=== PATIENT | male | born 1970 | race Caucasian/White ===

== ENCOUNTER 2021-01-25 08:42 | Emergency (ER) | payer MEDICAID, OTHER, SELFPAY ==
[2021-01-25 09:02] VITALS: BP 133/78; PULSE 83; RESP 18; TEMP 36.6; O2SAT 98; BMI 35.4
--- NOTE | 2021-01-25 09:29 | ED_ITS ---
HPI - Extremity Problem General Chief complaint: Extremity Injury, Upper Stated complaint: pain on arm, no sensation Time Seen by Provider: 01/25/21 09:26 Source: patient Mode of arrival: ambulatory History of Present Illness HPI Narrative: 50-year-old male with no significant past medical history presenting to the ED complaining ofAcute on chronic left shoulder pain radiating down left arm since 2000. Reports used to work with a lot of heavy lifting / repetitive motions and has history of pinched nerve in neck causing symptoms, denies recent / new history of trauma, falls, or injury. Has not been taking medications at home for the pain. Admits to associated tingling. Denies numbness, weakness, urinary incontinence /retention, CP/SOB Related Data Previous Rx's Medication Instructions Recorded acetaminophen [Tylenol Extra 500 mg PO Q6H PRN #20 tab 01/25/21 Strength] cyclobenzaprine 5 mg PO Q8H PRN 5 Days #14 tab 01/25/21 lidocaine [Lidoderm] 1 patch TOPICAL DAILY PRN #30 ea 01/25/21 MDD remove after 12 hours naproxen 500 mg PO BID PRN 10 Days #20 tab 01/25/21 Allergies Allergy/AdvReac Type Severity Reaction Status Date / Time No Known Allergies Allergy Verified 01/25/21 09:08 Review of Systems Review of Systems: Constitutional: No Fever, No Chills Cardiovascular: No Chest Pain, No SOB Respiratory: No Cough, No Sputum, No Wheezing Gastrointestinal: No Nausea, No Vomiting, No Diarrhea, No Abdominal pain Genitourinary: No Urinary Incontinence/ no retention Musculoskeletal: +L neck/sholder pain, No Myalgias, No Joint Swelling Skin: No Skin Lesions, No rash Neuro: No Weakness, No Numbness, + Paresthesias Yes all other systems are reviewed and are negative [facility] Past Medical History Attestation statement: The following information was validated with the patient. Medical History (Updated 01/25/21 @ 09:37 by WAN Carlos) No known health problems Social History Social History Advance Directives: No Advance Directives Information Provided: No Physical Exam Vital Signs: Vital Signs: Last Vital Signs Temp 97.8 F 01/25/21 09:02 Pulse 83 01/25/21 09:02 Resp 18 01/25/21 09:02 BP 133/78 01/25/21 09:02 Pulse Ox 98 01/25/21 09:02 Body Mass Index 35.4 Const: General: cooperative, healthy appearing, comfortable and no acute d istress Orientation/consciousness: patient oriented x3 Limitations: no limitations HENMT: Head: Yes normal to inspection Ears: hearing grossly normal bilaterally General nose exam: Normal external nose present Face and sinus: Yes normal facial exam Eyes: General: appearance normal, both eyes and all related structures EOM: EOMs intact bilaterally Neck: Other: no midline cervical spinous tenderness or step-offs. + left- sided trapezius muscle tenderness to palpation and spasming noted Neck: Yes normal visual inspection Resp: Effort & Inspection: normal respiratory effort and no respiratory distress Cardio: Rate: regular rate GI: Inspection: Yes normal to inspection Palpation (GI): Soft to palpation, nontender, no guarding and not rigid Back/Spine/Pelvis: Other: No midline thoracic/lumbar spinous tenderness Skin: Rashes: no rashes Wounds: no wounds Neuro: Other: Strength intact throughout General: patient oriented x3, gait normal, tone normal and moves all extremities Gait exam (Neuro): Normal gait present Motor exam (neuro): 5/5 motor strength present throughout Extrem: General: Yes normal to inspection MDM - Extremity (Nontraumatic) MDM Narrative Medical decision making narrative: 50-year-old male with no significant past medical history presenting to the ED complaining ofAcute on chronic left shoulder pain radiating down left arm since 2000. On exam vital signs stable, NAD, nontoxic appearing, no midline spinous tenderness, no red flag symptoms. Left trapezius muscle tenderness/spasming reproducible on exam. Concern for MSK pain/strain. Low concern for cord compression, cauda equina, ACS Discharge Plan Discharge Clinical Impression: Strain of trapezius muscle Qualifiers: Encounter type: initial encounter Laterality: left Qualified Code(s): S46.812A - Strain of other muscles, fascia and tendons at shoulder and upper arm level, left arm, initial encounter Patient Disposition: Home, Self-Care Instructions: Musculoskeletal Pain (ED) Additional Instructions: Your pain is likely musculoskeletal Flexeril is a muscle relaxer, take at night as it makes you drowsy, do not drive, drink alcohol, or operate machinery while taking it Naproxen as an anti-inflammatory / pain medication, take with food Lidoderm patches are numbing patches, apply to painful area In addition take Tylenol at home If symptoms persist or worsen, pain becomes unbearable, you developed urinary retention or incontinence, or weakness return to the ED Es probable que ponce dolor sea musculoesquel?bertha Flexeril es un relajante muscular, t?jasso por la noche ya que le produce somnolencia, no conduzca, no vitaliy alcohol ni utilice maquinaria mientras lo chang. Naproxeno daryn medicamento antiinflamatorio / analg?sico, [place] con alimentos. Los parches de Lidoderm son parches que adormecen, se aplican al ?nancy dolorida Adem?s, tome Tylenol en casa. Si los s?ntomas persisten o empeoran, el dolor se vuelve insoportable, desarroll? retenci?n urinaria o incontinencia, o debilidad regrese al servicio de urgencias Prescriptions: New acetaminophen [Tylenol Extra Strength] 500 mg tablet 500 mg PO Q6H PRN (Reason: pain or fever) Qty: 20 RF: 0 lidocaine [Lidoderm] 5 % adhesive patch,medicated 1 patch topical DAILY MDD remove after 12 hours PRN (Reason: pain) Qty: 30 RF: 0 naproxen 500 mg tablet 500 mg PO BID PRN (Reason: pain) 10 Days Qty: 20 RF: 0 cyclobenzaprine 5 mg tablet 5 mg PO Q8H PRN (Reason: pain (scale score 7-10)) 5 Days Qty: 14 RF: 0 Referrals: Soheila Jauregui FNP [Nurse Practitioner] - 2 days [facility] BARLOW [Nurse Practitioner] - 2 days [facility] [Physician] - 2 days Print Language: Tajik
[2021-01-25] MEDS: Ketorolac Tromethamine 30 MG/ML VIAL IM (09:33)
[2021-01-25 09:51] VITALS: RESP 17
== END 2021-01-25 09:51 | disposition home or self-care (01) ==
PROVIDERS: Emergency Provider Emergency Medicine
DX: S46.812A Strain of other muscles, fascia and tendons at shoulder and upper arm level, left arm, initial encounter (principal); X50.9XXA Other and unspecified overexertion or strenuous movements or postures, initial encounter; X50.0XXA Overexertion from strenuous movement or load, initial encounter; Y93.89 Activity, other specified; Y92.9 Unspecified place or not applicable; Y99.0 Civilian activity done for income or pay
CPT/HCPCS: 96372; 99283; 99284; J1885

== ENCOUNTER 2023-03-15 08:31 | Outpatient (REF) | payer MEDICAID, OTHER, SELFPAY ==
--- NOTE | 2023-03-15 08:35 | EMG_ITS ---
Left median and ulnar motor and sensory studies were performed. Left radial sensory study was performed. Left median and lateral antecubital sensory studies were performed. Paraspinal and some limb muscles were tested with needle. IMPRESSION: Mild left ulnar neuropathy across cubital tunnel. There was no evidence of median neuropathy. MD BETZY Jenkins/DOUG / [phone]
== END 2023-03-15 08:32 | disposition home or self-care (01) ==
LOC: HO.NEURO 08:31
PROVIDERS: PCP Registered Nurse; Visit Provider Registered Nurse
DX: R20.2 Paresthesia of skin (principal)
CPT/HCPCS: 95886; 95910

== ENCOUNTER 2023-06-23 05:31 | Emergency (ER) | payer MEDICAID, OTHER, SELFPAY ==
--- NOTE | ~2023-06-23 | XR_ITS ---
EXAMINATION: XR CHEST CLINICAL INFORMATION: Dyspnea COMPARISON: None available. TECHNIQUE: 2 views of the chest were obtained. FINDINGS: No significant abnormality is noted involving the heart, lungs, mediastinum, bony thorax or soft tissues. XR/XR chest 2V IMPRESSION: Unremarkable examination.
[2023-06-23 05:47] VITALS: BP 133/79; PULSE 104; RESP 18; TEMP 37.6; O2SAT 97; BMI 34.9
[2023-06-23 06:06] LABS: COVID-19 Test Positive (Negative); IDNOW Serial# BCCEAD1C
[2023-06-23 06:13] LABS: IDNOW Serial# 6674DD1D; Strep A Nucleic Acid Negative (Negative)
--- NOTE | 2023-06-23 06:48 | ED.URI ---
HPI - URI/Sore Throat General Chief Complaint: General Medical Stated Complaint: Fever, Nausea, Cough Time Seen by Provider: 06/23/23 06:34 Source: patient Mode of arrival: ambulatory Limitations: language barrier ( Indonesian-speaking incident response manager utilized) History of Present Illness HPI Narrative: Patient is a 53-year-old male who presents to the emergency department after tested positive for COVID-19 at home. he reports frequent experiencing symptoms for the past 3 days fever responding to Tylenol, nausea without vomiting, headache without dizziness/ lightheadedness /present changes /neck pain, sore throat without difficulty swallowing, nonproductive. his is ill with similar symptoms as well. he has been vaccinated for COVID- 19 x 3 with Moderna. he has never had a COVID-19 infection before, so he states she came to the hospital to figure out what to do Related Data Previous Rx's Medication Instructions Recorded acetaminophen 500 mg tablet 500 mg PO Q6H PRN pain or fever 01/25/21 (Tylenol Extra Strength) #20 tabs cyclobenzaprine 5 mg tablet 5 mg PO Q8H PRN pain (scale score 01/25/21 7-10) 5 days #14 tabs lidocaine 5 % topical patch 1 patch topical DAILY PRN pain #30 01/25/21 (Lidoderm) ea naproxen 500 mg tablet 500 mg PO BID PRN pain 10 days #20 01/25/21 tabs Allergies Allergy/AdvReac Type Severity Reaction Status Date / Time No Known Allergies Allergy Verified 06/23/23 05:46 Review of Systems Review of Systems: Yes all other systems are reviewed and are negative PMFSH Past Medical History Attestation statement: The following information was validated with the patient. Source: old records reviewed Medical History No known health problems Social History Social History Alcohol intake: current Alcohol intake frequency: holidays/special occasions only Smoked in Last 30 Days: No Use of substances other than those prescribed or required for medical reasons: No Advance Directives: No Advance Directives Information Provided: Yes Physical Exam Vital Signs: Vital Signs: Last Vital Signs Temp 99.7 F 06/23/23 05:47 Pulse 104 H 06/23/23 05:47 Resp 18 06/23/23 05:47 BP 133/79 06/23/23 05:47 Pulse Ox 97 06/23/23 05:47 O2 Del Method Room Air 06/23/23 05:47 BMI result Body Mass Index 34.9 Appearance: Alert.?Oriented to person, place and time. No acute distress.?Normal affect. Eyes: Pupils equal, round and reactive to light.? ENT: TM normal bilaterally. Pharynx normal.?? Neck: Normal inspection.? Neck supple.??No cervical adenopathy CVS: Heart sounds normal. Normal heart rate and rhythm.? Pulses normal.?? Respiratory: No respiratory distress.? Lung sounds clear to auscultation bilaterally?? Abdomen: Soft and non-tender. Normoactive bowel sounds. Skin: Skin warm and dry.? Normal skin color.? ? Extremities: No lower extremity edema.? Neuro: Moves all extremities spontaneously. Sensation intact bilaterally. No motor deficits. Ambulates with normal steady gait. Medical Decision Making Medical Decision Making [facility] Narrative: Patient is a 53-year-old male with no reported past medical history presenting for evaluation of upper respiratory symptoms. COVID-19 testing positive. At this time history and physical exam not consistent with peritonsillar/retropharyngeal abscess/pneumonia. Well-appearing, nontoxic, afebrile, or tachypnea/hypoxia. Speaking clear full sentences, ambulatory with steady gait. offered treatment with Paxlovid, discussed indications for use, side effects, complications, medication interactions, patient ultimately declined treatment. Discussed conservative treatment including rest, hydration, Tylenol/ibuprofen as needed for fever and body aches, saline nasal spray, humidifier, [id number] cold medication. Advised to follow-up with primary care provider as needed, discussed reasons to return back to the emergency department. All questions were answered. Patient discharged home in stable condition. Differential Diagnosis Differential Diagnoses: The differential diagnosis associated with the presentation includes ( as noted above) Lab Data [facility] Lab Attestation statement: I reviewed the patient's lab results. Labs: Lab Results 06/23/23 06/23/23 Range/Units 05:54 06:01 COVID-19 (ASHLEY) Positive A (Negative) COVID-19 Clin Com See Note S. pyogenes GrpA ROBERT Negative (Negative) Independent Interpretation I performed an independent interpretation of an: Plain X-Ray ( I personally interpreted chest x-ray and agree with radiologist impression, no evidence of consolidation or infiltrate) Radiology Impression Discussion of test interpretation with radiology: I have reviewed the radiologist's reading. Radiologist Impression: XR/XR chest 2V IMPRESSION: Unremarkable examination. Independent Historian Clinical information obtained from an independent historian. History obtained from or confirmed by: Spouse ( present at bedside who confirms history) External Record Review External record reviewed: Outpatient record Prescription Management I considered prescription management with: Antiviral ( see narrative above for further detail) Discharge Plan Discharge Clinical Impression: COVID-19 Patient Disposition: Home, Self-Care Instructions: COVID-19 (Coronavirus Disease 2019) (ED) Additional Instructions: You have tested positive for COVID- 19. You were offered treatment with Paxlovid, however you have declined. Please wear mask in socially distance at all times possible. You should remain home as much as you can. Per the CDC guidelines are a return back to work or and social distancing once it has been 5 days since the onset of your symptoms, you are feeling better, and or without a fever without the use of Tylenol or ibuprofen. Your soonest return to work date/ and isolation date is Sunday06/25/2023 Be sure to rest, stay well hydrated drinking plenty of fluids, eat small frequent meals. You can take ibuprofen 200 mg, 3 tablets (600mg) every 6-8 hours as needed for pain, in addition to Tylenol 500 mg, 2 tablets (1,000mg) every 4-6 hours as needed for pain, but not to exceed 3 doses daily (3,000mg).? [id number]-csz-avnpzdz cold medications may be helpful as well for symptoms. Saline nasal spray, humidifier may be helpful for nasal congestion. You may return to the emergency department with any new or worsening symptoms or concerns. Follow-up with your primary care provider as needed. S Prescriptions: No Action acetaminophen [Tylenol Extra Strength] 500 mg tablet 500 mg PO Q6H PRN (Reason: pain or fever) Qty: 20 0RF lidocaine [Lidoderm] 5 % adhesive patch,medicated 1 patch topical DAILY MDD remove after 12 hours PRN (Reason: pain) Qty: 30 0RF Rx Instructions: leave on most painful area for up to 12 hrs naproxen 500 mg tablet 500 mg PO BID PRN (Reason: pain) 10 Days Qty: 20 0RF cyclobenzaprine 5 mg tablet 5 mg PO Q8H PRN (Reason: pain (scale score 7-10)) 5 Days Qty: 14 0RF Referrals: Beto Gimenez [employer] [Primary Care Provider] - Interventions: ED Discharge Assessment Last Done: 06/23/23 06:56 Discharge Date/Time: 06/23/23 06:58
== END 2023-06-23 06:58 | disposition home or self-care (01) ==
PROVIDERS: Emergency Provider Emergency Medicine; PCP Registered Nurse
DX: U07.1 COVID-19 (principal); R50.9 Fever, unspecified
CPT/HCPCS: 71046; 87635; 87651; 99283; 99284

== ENCOUNTER 2024-08-22 04:04 | Emergency (ER) | payer MEDICAID, OTHER, SELFPAY ==
--- NOTE | ~2024-08-22 | CT_ITS ---
EXAMINATION: CT ABDOMEN AND PELVIS WITH CONTRAST CLINICAL INFORMATION: Left lower quadrant pain COMPARISON: None available. TECHNIQUE: Multidetector volumetric images were obtained from the superior aspect of the liver through the pubic symphysis following administration 85 mL of Omnipaque 350 intravenous contrast. Sagittal and coronal reformatted images were obtained on the technologist's workstation. Oral contrast: No This CT examination was performed using dose optimization techniques as appropriate, variously including the following: *Automated exposure control *Adjustment of mA and/or kV according to patient size (this includes techniques or standardized protocols for targeted exams where dose is matched to indication/reason for exam; i.e. extremities or head) *Use of iterative reconstruction technique DLP 720 FINDINGS: LUNG BASES: There is dependent atelectasis right lung base. The heart size is normal. There is no pleural or pericardial effusion. LIVER, GALLBLADDER, AND BILIARY TREE: There is mild atrophy of the anterior segment right hepatic lobe. The liver is otherwise normal in size, shape, and attenuation. No focal hepatic lesion or biliary ductal dilatation is present. The gallbladder is unremarkable with no evidence of radiopaque gallstones, gallbladder wall thickening, or obvious pericholecystic inflammatory changes. PANCREAS: Unremarkable. SPLEEN: Unremarkable. ADRENAL GLANDS: Unremarkable. KIDNEYS AND URETERS: The kidneys are normal in size, shape, and attenuation. No hydronephrosis, hydroureter, or calculi seen. There are bilateral extrarenal kidney pelvises but no ureteral dilatation seen. No perinephric stranding. BLADDER: Unremarkable. GASTROINTESTINAL TRACT: There is scattered stool, diverticuli and gas seen in the colon without significant distention. The small bowel loops are normal caliber. Appendix is not visualized. The stomach is mildly prominent with recently ingested food. ABDOMINAL WALL: Small umbilical hernia containing fat. LYMPH NODES: Normal. VASCULAR: Unremarkable. PELVIC VISCERA: Prostate gland and seminal vesicles are mildly enlarged left seminal slightly larger than the right. OSSEOUS STRUCTURES: Mild spondylosis. No aggressive lytic or sclerotic process seen CT/CT abdomen pelvis w IV con IMPRESSION: No acute intra-abdominal process seen. Especially there is no left-sided abnormality seen. Bilateral extrarenal pelvises but no radiopaque urolith. Nonspecific mild enlargement of prostate and seminal vesicles. Fleischner guidelines were followed. Electronically signed by: Soruav Morales MD 08/22/2024 09:01 AM EST [facility]
[2024-08-22 04:09] VITALS: BP 127/75; PULSE 83; RESP 18; TEMP 36.5; O2SAT 98; BMI 33.3
[2024-08-22 04:48] LABS: MANUAL DIFF FLAG NO
[2024-08-22 04:50] LABS: Basophils Percent Auto 0.2 % (0-2); Eosinophils Absolute Auto 0.1 X10*3/uL (0.0-0.4); Eosinophils Percent Auto 1.8 % (0-4); Hematocrit 39.5 % (42.0-52.0); Hemoglobin 14.2 g/dl (14.0-18.0); Imm Gran Abs Auto 0.03 X10*3/uL (0.00-0.03); Imm Gran Pct Auto 0.5 % (0.0-0.4); Lymphocytes Absolute Auto 2.7 X10*3/uL (1.2-4.9); Lymphocytes Percent Auto 43.7 % (20-40); Mean Corpuscular HGB Conc 35.9 g/dl (31.0-36.0); Mean Corpuscular Hemoglobin 34.5 pg (27.0-33.0); Mean Corpuscular Volume 96.1 fL (80.0-98.0); Mean Platelet Volume 10.4 fL (9.4-12.4); Monocytes Absolute Auto 0.5 X10*3/uL (0.1-1.2); Monocytes Percent Auto 7.9 % (2-11); Neutrophils Absolute Auto 2.9 x10*3/uL (2.0-8.3); Neutrophils Percent Auto 45.9 % (45-73); Platelet Count 124 X10*3/uL (160-400); Red Blood Count 4.11 X10*6/uL (4.60-5.80); Red Cell Distribution Width 12.5 % (11.0-16.0); White Blood Count 6.2 X10*3/uL (4.8-10.8)
[2024-08-22 05:03] LABS: Alanine Aminotransferase 65 U/L (0-40); Albumin Level 4.1 g/dL (3.5-5.0); Alkaline Phosphatase 61 U/L (39-117); Anion Gap 15 (12-20); Aspartate Amino Transferase 58 U/L (5-37); Bilirubin Total 0.9 mg/dL (0.0-1.0); Blood Urea Nitrogen 12 mg/dL (9-16); Calcium 8.7 mg/dL (8.4-10.2); Carbon Dioxide 19 mmol/L (22-29); Chloride 106 mmol/L (96-108); Creatinine Clr Calc Pharmacy 110.4; Estimated Glomerular Filt Rate > 60; Glucose Random 163 mg/dL (60-115); Potassium 3.2 mmol/L (3.3-5.1); Sodium 137 mmol/L (135-145); Total Protein 8.1 g/dL (6.5-8.0)
[2024-08-22 05:25] LABS: Influenza A PCR NEGATIVE (Negative); Influenza B PCR NEGATIVE (Negative); Resp Syncy Virus RNA Qual PCR NEGATIVE (Negative); SARS COV2 PCR INHOUSE NEGATIVE (Negative)
[2024-08-22 06:24] VITALS: BP 107/72; PULSE 78; RESP 18; TEMP 37; O2SAT 97
--- NOTE | 2024-08-22 06:57 | ED_ITS ---
HPI - Nausea/Vomiting/Diarrhea General Chief complaint: Nausea/Vomiting/Diarrhea Stated complaint: n/v, dizziness Time Seen by Provider: 08/22/24 06:55 Source: patient, family and old records reviewed Mode of arrival: ambulatory Limitations: no limitations History of Present Illness ED Provider: FRANKI SHELTON Narrative: 54 yo male with no PMH here with c/o waking up with nausea and LLQ pain no vomiting, no fevers, feels weak dizzy and chills. Has no urinary symptoms and no diarrhea. No fevers known. Blames this on 3 bagles he ate before bed. No sick contacts or travel. MD elicited complaint: nausea and abdominal pain Onset (ago): day(s) (1am today) Associated nausea: Yes Associated abdominal pain: Yes Location of pain: LLQ Radiation: LLQ Pain consistency: constant Severity: mild Quality: dull Exacerbating factors: movement Relieving factors: none Associated symptoms: loss of appetite, malaise, nausea/vomiting and weakness Related Data Previous Rx's ?Medication ?Instructions ?Recorded acetaminophen 500 mg tablet 500 mg PO Q6H PRN pain or fever 01/25/21 (Tylenol Extra Strength) #20 tabs cyclobenzaprine 5 mg tablet 5 mg PO Q8H PRN pain (scale score 01/25/21 7-10) 5 days #14 tabs lidocaine 5 % topical patch 1 patch topical DAILY PRN pain #30 01/25/21 (Lidoderm) ea naproxen 500 mg tablet 500 mg PO BID PRN pain 10 days #20 01/25/21 tabs ondansetron 4 mg disintegrating 4 mg PO Q8H PRN nausea and 08/22/24 tablet vomiting #20 tabs Allergies Allergy/AdvReac Type Severity Reaction Status Date / Time No Known Allergies Allergy Verified 08/22/24 04:14 Review of Systems 2 Review of Systems: Constitutional : No Weight loss, No Fever, No Chills ENT/Mouth : No sore throat, No Rhinorrhea Eyes: No Swelling, No Redness Cardiovascular : No Chest Pain, No SOB, NoEdema Respiratory : No Cough, No Sputum, No Wheezing Gastrointestinal : Positive Nausea, no Vomiting, no Diarrhea, positive abdominal Pain, No Hematochezia, No Melena Genitourinary : No Dysuria, No Urinary Frequency, No Hematuria, No Urgency Musculoskeletal : No joint pain, No Myalgias, No Joint Swelling Skin : No Skin Lesions, No rash Neuro : No Weakness, No Numbness, No Dizziness, No Headache All other systems reviewed and are negative. Gastrointestinal: Gastrointestinal: Reports nausea PMFSH Past Medical History Attestation statement: The following information was validated with the patient. Source: old records reviewed Medical History No known health problems Social History Social History Alcohol intake: current Alcohol intake frequency: does not drink Smoked in Last 30 Days: No Use of substances other than those prescribed or required for medical reasons: No Advance Directives: No Advance Directives Information Provided: Yes Do you have a plan to hurt others: No Plan Physical Exam 2 Vital Signs: Vital Signs: Last Vital Signs Temp 97.5 F 08/22/24 07:12 Pulse 88 08/22/24 07:12 Resp 16 08/22/24 07:12 BP 126/76 08/22/24 07:12 Pulse Ox 96 08/22/24 07:12 O2 Del Method Room Air 08/22/24 07:12 BMI result Body Mass Index 33.3 Appearance: Alert. Oriented X3. No acute distress. Eyes: Pupils equal, round and reactive to light. ENT: Pharynx normal. Neck: Normal inspection. Neck supple. CVS: Normal heart rate and rhythm. Pulses normal. Respiratory: No respiratory distress. Breath sounds normal. Abdomen: Soft and mild LLQ pain no rebound Skin: Skin warm and dry. Normal skin color. Normal skin turgor. Extremities: No lower extremity edema. No calf ttp Neuro: Oriented X 3. No motor deficit. No sensory deficit. Medications Administered Discontinued Medications Generic Name Dose Route Start Last Admin Trade Name Freq PRN Reason Stop Dose Admin Lactated Ringer's 1,000 mls @ 999 mls/hr 08/22/24 06:58 08/22/24 08:31 Lr IV 08/22/24 07:58 Infused .Q1H1M ONE Infusion Ondansetron HCl 4 mg 08/22/24 06:58 08/22/24 07:09 Ondansetron Hcl 4 Mg/2 Ml Vial IVPUSH 08/22/24 06:59 4 mg ONCE ONE Administration Potassium Chloride 20 meq 08/22/24 06:58 08/22/24 07:07 Potassium Chloride Er 20 Meq Tab.Er.Prt PO 08/22/24 06:59 20 meq ONCE ONE Administration Medical Decision Making Medical Decision Making [facility] Narrative: 54 yo male with no PMH here with c/o nausea and LLQ pain overall benign abdominal exam and not toxic no fevers, urinary symptoms, no v/d at this time labs, CT scan for diverticulitis - suspect viral syndrome vs renal colic vs diverticulitis. Dizziness with movement no focal deficits doubt stroke or ICH Differential Diagnosis Differential Diagnoses: The differential diagnosis associated with the presentation includes viral syndrome vs renal colic vs diverticulitis. Admission/Observation Consideration of admission/observation: Escalation of care including admission/observation considered feels better tolerating PO stable for DC Lab Data [facility] Lab Attestation statement: I reviewed the patient's lab results. 08/22/24 04:43 08/22/24 04:43 Labs: Lab Results 08/22/24 Range/Units 04:43 WBC 6.2 (4.8-10.8) X10*3/uL RBC 4.11 L (4.60-5.80) X10*6/uL Hgb 14.2 (14.0-18.0) g/dl Hct 39.5 L (42.0-52.0) % MCV 96.1 (80.0-98.0) fL MCH 34.5 H (27.0-33.0) pg MCHC 35.9 (31.0-36.0) g/dl RDW 12.5 (11.0-16.0) % Plt Count 124 L (160-400) X10*3/uL MPV 10.4 (9.4-12.4) fL Immature Gran % (Auto) 0.5 H (0.0-0.4) % Neut % (Auto) 45.9 (45-73) % Lymph % (Auto) 43.7 H (20-40) % [place] % (Auto) 7.9 (2-11) % Eos % (Auto) 1.8 (0-4) % Baso % (Auto) 0.2 (0-2) % Lymph # (Auto) 2.7 (1.2-4.9) X10*3/uL [place] # (Auto) 0.5 (0.1-1.2) X10*3/uL Eos # (Auto) 0.1 (0.0-0.4) X10*3/uL Baso # (Auto) 0.0 (0.0-0.2) X10*3/uL Abs Immat Gran (auto) 0.03 (0.00-0.03) X10*3/uL Absolute Neuts (auto) 2.9 (2.0-8.3) x10*3/uL Absolute Nucleated RBC 0.000 (0.0-0.012) X10*3/uL Nucleated RBC % (auto) 0.0 (0.0-0.2) /100WBC Sodium 137 (135-145) mmol/L Potassium 3.2 L (3.3-5.1) mmol/L Chloride 106 (96-108) mmol/L Carbon Dioxide 19 L (22-29) mmol/L Anion Gap 15 (12-20) BUN 12 (9-16) mg/dL Creatinine 0.81 (0.5-1.4) mg/dL Estim Creat Clear Calc 110.4 Estimated GFR > 60 Random Glucose 163 H (60-115) mg/dL Calcium 8.7 (8.4-10.2) mg/dL Total Bilirubin 0.9 (0.0-1.0) mg/dL AST 58 H (5-37) U/L ALT 65 H (0-40) U/L Alkaline Phosphatase 61 (39-117) U/L Total Protein 8.1 H (6.5-8.0) g/dL Albumin 4.1 (3.5-5.0) g/dL Influenza Type A (PCR) NEGATIVE (Negative) Influenza Type B (PCR) NEGATIVE (Negative) RSV RNA Qual (PCR) NEGATIVE (Negative) SARS-CoV-2 RNA (RT-PCR) NEGATIVE (Negative) Independent Interpretation I performed an independent interpretation of an: CT Scan (no acute cause) Radiology Impression Discussion of test interpretation with radiology: I have reviewed the radiologist's reading. Independent Historian Clinical information obtained from an independent historian. History obtained from or confirmed by: Spouse Prescription Management I considered prescription management with: Other Discharge Plan Discharge Clinical Impression: Acute viral syndrome, Nausea Patient Disposition: Home, Self-Care Instructions: Hypokalemia (ED), Acute Nausea and Vomiting (ED), Viral Syndrome (ED) Additional Instructions: labs were reassuring other than potassium mildly low at this time CT scan no acute cause suspect viral syndrome stay hydrated, eat a bland diet for 48 hours return for worsening pain or any other concerns CT/CT abdomen pelvis w IV con IMPRESSION: No acute intra-abdominal process seen. Especially there is no left-sided abnormality seen. Bilateral extrarenal pelvises but no radiopaque urolith. Nonspecific mild enlargement of prostate and seminal vesicles. follow up with family doctor in regards to enlarged prostate Prescriptions: New ondansetron 4 mg tablet,disintegrating 4 mg PO Q8H PRN (Reason: nausea and vomiting) Qty: 20 0RF No Action acetaminophen [Tylenol Extra Strength] 500 mg tablet 500 mg PO Q6H PRN (Reason: pain or fever) Qty: 20 0RF lidocaine [Lidoderm] 5 % adhesive patch,medicated 1 patch topical DAILY MDD remove after 12 hours PRN (Reason: pain) Qty: 30 0RF Rx Instructions: leave on most painful area for up to 12 hrs naproxen 500 mg tablet 500 mg PO BID PRN (Reason: pain) 10 Days Qty: 20 0RF cyclobenzaprine 5 mg tablet 5 mg PO Q8H PRN (Reason: pain (scale score 7-10)) 5 Days Qty: 14 0RF Stand Alone Forms: Work/School Release Print Language: Wallisian
[2024-08-22] MEDS: Potassium Chloride ER 20 MEQ TAB.ER.PRT PO (07:07)
[2024-08-22] MEDS: ondansetron HCL 4 MG/2 ML VIAL IVPUSH (07:09)
[2024-08-22] MEDS: Lactated Ringers 1,000 ML 999 ML IV (07:10)
[2024-08-22 07:12] VITALS: BP 126/76; PULSE 88; RESP 16; TEMP 36.4; O2SAT 96
[2024-08-22 09:30] VITALS: BP 131/85; PULSE 89; RESP 18; TEMP 36.8; O2SAT 96
[2024-08-22 09:38] VITALS: BP 131/85; PULSE 89; RESP 18; TEMP 36.8; O2SAT 96
== END 2024-08-22 09:39 | disposition home or self-care (01) ==
PROVIDERS: Emergency Provider Emergency Medicine
DX: B34.9 Viral infection, unspecified (principal); R11.0 Nausea; E87.6 Hypokalemia; R10.32 Left lower quadrant pain; Z03.818 Encounter for observation for suspected exposure to other biological agents ruled out; Z79.899 Other long term (current) drug therapy
CPT/HCPCS: 0241U; 74177; 80053; 85025; 96361; 96374; 99284; J2405; J7120

== ENCOUNTER → 2024-08-22 07:12 | Outpatient (BNV) | payer SELFPAY | PROVIDERS: Emergency Provider Emergency Medicine; Visit Provider Radiology Diagnostic Radiology | DX: R10.32 Left lower quadrant pain (principal) | CPT/HCPCS: 74177 ==